=== PATIENT | male | born 1985 | race Caucasian/White ===

== ENCOUNTER → 2017-12-16 | Outpatient (CLI) | payer BC ==
[~2017-12-16] MED LIST: OXYC5TAB PO
--- NOTE | 2017-12-16 14:57 | DIAGNOSTIC IMAGING REPORT ---
ORBIT RADIOGRAPHS 3 VIEWS HISTORY: pre-MRI screening. COMPARISON: None. FINDINGS: There are no radiopaque foreign bodies identified within the orbits. IMPRESSION: No radiopaque foreign bodies identified within the orbits. Electronically signed by: Edilberto Vernon M.D. 12/16/2017 2:55 PM Dictated Date/Time: 12/16/2017 2:55 PM
--- NOTE | 2017-12-16 16:08 | DIAGNOSTIC IMAGING REPORT ---
MRI LUMBAR SPINE W/O CONTRAST CLINICAL HISTORY: Low back pain with bilateral leg radiculopathy. TECHNIQUE: Sagittal and axial T1, T2 and STIR images were obtained. COMPARISON STUDY: Outside study dated October 16, 2017 OBSERVATIONS: The vertebral bodies and posterior elements appear intact. There is no abnormal bony signal present to suggest a marrow replacement process. L1-2: No disc protrusions or extrusions. No evidence of spinal canal or neural foraminal compromise. L2-3: No disc protrusions or extrusions. No evidence of spinal canal or neural foraminal compromise. L3-4: No disc protrusions or extrusions. No evidence of spinal canal or neural foraminal compromise. L4-5: There is a small broad-based central disc protrusion with mild spinal canal narrowing. There is no significant foraminal narrowing L5-S1: There is a minor circumferential disc bulge. There is no significant spinal or foraminal stenosis. The conus medullaris and cauda equina appear normal. IMPRESSION: Small central disc protrusion at the L4-5 level with mild spinal canal narrowing, similar to the prior examination. Electronically signed by: Wilder Ballard M.D. 12/16/2017 4:07 PM Dictated Date/Time: 12/16/2017 4:04 PM
== END | disposition home or self-care (01) ==
LOC: C.RADBC 14:43
PROVIDERS: ATTEND Orthopaedic Surgery Orthopaedic Surgery of the Spine
DX: M51.26 Other intervertebral disc displacement, lumbar region (principal); M48.061 Spinal stenosis, lumbar region without neurogenic claudication; Z77.018 Contact with and (suspected) exposure to other hazardous metals